=== PATIENT | male | born 1985 | race Asian ===

== ENCOUNTER 2018-10-17 14:22 | Emergency (ER) | payer OTHER ==
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
[2018-10-17 15:38] VITALS: BP 121/76
== END 2018-10-17 15:38 | disposition home or self-care (01) ==
DX: S16.1XXA Strain of muscle, fascia and tendon at neck level, initial encounter (principal); S50.02XA Contusion of left elbow, initial encounter; V49.49XA Driver injured in collision with other motor vehicles in traffic accident, initial encounter; Y92.410 Unspecified street and highway as the place of occurrence of the external cause